=== PATIENT | female | born 1975 | race Caucasian/White ===

== ENCOUNTER 2017-02-21 07:35 | Emergency (ER) | payer SELFPAY ==
[~2017-02-21] VITALS: Ht 165.1 cm; Wt 67.1 kg
[2017-02-21 08:34] LABS: BASOPHIL % 0.1 % (0-2); PLATELET COUNT 346 x10^3mcL (130-400); RED CELL DISTRIBUTION WIDTH 13.3 % (11.5-14.5)
[2017-02-21 08:54] LABS: AMPHETAMINE QUAL UR NONE DETECTED (NEG <=1000)
[2017-02-21 09:20] LABS: CALCIUM 8.7 mg/dL (8.5-10.1); CARBON DIOXIDE 16.4 mmol/L (21-32); CHLORIDE SERUM 104 mmol/L (98-107); CREATININE SERUM 0.8 mg/dL (0.6-1.0); GFR1 > 60 mL/min; GLUCOSE SERUM 109 mg/dL (74-106); POTASSIUM SERUM 3.5 mmol/L (3.5-5.1); SODIUM SERUM 138 mmol/L (136-145)
[2017-02-21 09:24] LABS: ALBUMIN 3.9 g/dL (3.4-5.0); ALKALINE PHOSPHATASE 73 U/L (46-116); ALT/SGPT 37 U/L (14-59); AST/SGOT 36 U/L (15-37); BILIRUBIN TOTAL 0.8 mg/dL (0.20-1.00); TOTAL PROTEIN, SERUM 7.7 g/dL (6.4-8.2)
[2017-02-21 09:38] VITALS: BP 138/83
== END 2017-02-21 10:39 | disposition home or self-care (01) ==
LOC: ED 07:35
PROVIDERS: Emergency Medicine
DX: F41.9 Anxiety disorder, unspecified (principal); F12.10 Cannabis abuse, uncomplicated; R11.10 Vomiting, unspecified
CPT/HCPCS: 83880; G0480; J2060; J2405; J7030

== ENCOUNTER 2018-08-18 07:42 | Emergency (ER) | payer BC ==
[~2018-08-18] VITALS: Ht 165.1 cm; Wt 55.8 kg
[2018-08-18 07:51] VITALS: Ht 165.1 cm; Wt 55.8 kg
[2018-08-18 11:26] VITALS: BP 124/73
== END 2018-08-18 11:26 | disposition home or self-care (01) ==
LOC: ED 07:42
DX: R11.2 Nausea with vomiting, unspecified (principal); R42 Dizziness and giddiness; R19.7 Diarrhea, unspecified; R10.9 Unspecified abdominal pain; F41.9 Anxiety disorder, unspecified
CPT/HCPCS: J1885; J2060; J2270; J2405; J2550; J7030

== ENCOUNTER 2018-09-25 07:56 | Emergency (ER) | payer BC ==
[~2018-09-25] VITALS: Ht 165.1 cm; Wt 52.2 kg
[2018-09-25 07:57] VITALS: Ht 165.1 cm; Wt 52.2 kg
[2018-09-25 08:42] LABS: BASOPHIL % 0.1 % (0-2); PLATELET COUNT 253 x10^3mcL (130-400); RED CELL DISTRIBUTION WIDTH 12.9 % (11.5-14.5)
[2018-09-25 08:55] LABS: CALCIUM 9.3 mg/dL (8.5-10.1); CARBON DIOXIDE 14.7 mmol/L (21-32); CREATININE SERUM 1.1 mg/dL (0.6-1.0); POTASSIUM SERUM 3.1 mmol/L (3.5-5.1)
[2018-09-25 08:59] LABS: ALBUMIN 4.5 g/dL (3.4-5.0); BILIRUBIN TOTAL 0.82 mg/dL (0.20-1.00); TOTAL PROTEIN, SERUM 7.2 g/dL (6.4-8.2)
[2018-09-25] MEDS ORDERED: PROZ20 PO (11:30)
[2018-09-25 15:43] VITALS: BP 130/76
== END 2018-09-25 15:43 | disposition short-term general hospital (02) ==
LOC: ED 07:56
PROVIDERS: Emergency Medicine
DX: K56.1 Intussusception (principal); F41.9 Anxiety disorder, unspecified; F10.10 Alcohol abuse, uncomplicated
CPT/HCPCS: J2060; J7030